=== PATIENT | male | born 1980 | race Caucasian/White ===

== ENCOUNTER 2022-10-01 17:50 | Inpatient (IN) | payer BC ==
[~2022-10-01] VITALS: Ht 177.8 cm; Wt 103.7 kg
[2022-10-01 20:21] LABS: Base Excess Venous -11.5 mmol/L; Bicarbonate Venous 16.6 mmol/L (24.0-30.0); PCO2 Venous 29.3 mmHg (38-42); pH Blood Venous 7.31 (7.34-7.37)
[2022-10-01 21:23] LABS: BASOPHILS ABSOLUTE AUTO 0.04 K/mm3 (0.00-0.23); BASOPHILS PERCENT AUTO 1 % (0-2); EOSINOPHILS ABSOLUTE AUTO 0.07 K/mm3 (0.00-0.68); EOSINOPHILS PERCENT AUTO 1 % (0-6); Hematocrit 35.6 % (37.0-53.0); Hemoglobin 12.6 g/dL (13.5-17.5); IMMATURE GRAN ABSOLUTE AUTO 0.04 K/mm3 (0.00-0.10); IMMATURE GRAN PERCENT AUTO 1 % (0-1); LYMPHOCYTES ABSOLUTE AUTO 1.69 K/mm3 (0.84-5.20); LYMPHOCYTES PERCENT AUTO 26 % (21-46); MONOCYTES PERCENT AUTO 6 % (4-13); Mean Corpuscular HGB 32.3 pg (26.0-34.0); Mean Corpuscular HGB Conc 35.4 g/dL (31.5-36.5); Mean Corpuscular Volume 91 fL (80-100); Mean Platelet Volume 11.6 fL (9.1-12.4); NEUTROPHILS ABSOLUTE AUTO 4.36 K/mm3 (1.96-9.15); NEUTROPHILS PERCENT AUTO 66 % (41-73); NRBC ABSOLUTE 0.02 K/mm3 (0.00-0.02); NRBC Auto 0.3 /100 WBC (0.0-0.2); Platelet Count 264 K/mm3 (150-400); RDW Coefficient Variation 12.6 % (11.7-14.2); RDW Standard Deviation 40.3 fL (35.1-46.3)
[2022-10-01 21:30] LABS: Albumin, Blood 3.5 g/dL (3.4-5.0); Albumin/Globulin Ratio 0.9 (0.8-1.8); Bilirubin, Total 0.9 mg/dL (0.1-1.0); Bun/Creatinine Ratio 27.9 (12.0-20.0); Calcium, Blood 8.4 mg/dL (8.5-10.1); Creatinine, Blood 0.47 mg/dL (0.60-1.20); Globulin, Blood 4.1 g/dL (2.2-4.0); Potassium, Blood 4.4 mmol/L (3.5-5.5); Total Protein, Blood 7.6 g/dL (6.4-8.2)
[2022-10-01 22:22] LABS: Source, Urine Clean Catch
[2022-10-01 22:30] LABS: Bilirubin, Urine Neg (Neg); Blood, Urine Neg (Neg); Glucose Qualitative, Urine 4+ (Neg); Ketones, Urine 4+ (Neg); Leukocyte Esterase, Urine Neg (Neg); Nitrite, Urine Neg (Neg); Protein, Urine Neg (Neg); Specific Gravity, Urine 1.025 (1.003-1.022); Urobilinogen, Urine NORM (Normal)
[2022-10-01 22:37] LABS: Appearance, Urine Clear (Clear); Color, Urine Yellow (P-Yellow)
[2022-10-01] MEDS ORDERED: ZESTRIL40 M1 PO (22:49)
[2022-10-01] MEDS ORDERED: LOSA50 PO (22:53)
[2022-10-01] MEDS ORDERED: HYDROCHLOROT 12.5MG (22:53)
[2022-10-01] MEDS ORDERED: HYDROXYZ HCL 25MG TA (22:54)
[2022-10-01] MEDS ORDERED: HYDHCL25 PO (22:55)
--- NOTE | 2022-10-01 23:00 | NUR ---
PT CHART REVIEWED FOR ADMISSION
[2022-10-01 23:29] VITALS: BP 150/84
[2022-10-02 05:14] LABS: BASOPHILS ABSOLUTE AUTO 0.04 K/mm3 (0.00-0.23); BASOPHILS PERCENT AUTO 1 % (0-2); EOSINOPHILS PERCENT AUTO 2 % (0-6); Hematocrit 35.5 % (37.0-53.0); Hemoglobin 13.3 g/dL (13.5-17.5); IMMATURE GRAN ABSOLUTE AUTO 0.05 K/mm3 (0.00-0.10); IMMATURE GRAN PERCENT AUTO 1 % (0-1); LYMPHOCYTES ABSOLUTE AUTO 1.84 K/mm3 (0.84-5.20); LYMPHOCYTES PERCENT AUTO 31 % (21-46); MONOCYTES ABSOLUTE AUTO 0.38 K/mm3 (0.16-1.47); MONOCYTES PERCENT AUTO 7 % (4-13); Mean Corpuscular HGB 34.1 pg (26.0-34.0); Mean Corpuscular HGB Conc 37.5 g/dL (31.5-36.5); Mean Corpuscular Volume 91 fL (80-100); Mean Platelet Volume 9.7 fL (9.1-12.4); NEUTROPHILS ABSOLUTE AUTO 3.48 K/mm3 (1.96-9.15); NEUTROPHILS PERCENT AUTO 59 % (41-73); Platelet Count 172 K/mm3 (150-400); RDW Standard Deviation 39.7 fL (35.1-46.3); White Blood Cell Count 5.89 K/mm3 (4.00-11.30)
[2022-10-02 05:17] VITALS: BP 130/79
--- NOTE | 2022-10-02 06:04 | NUR ---
Shift Summary Pt was admitted from ED with Dx of high blood sugar. He had gone to urgent care for sycopal episodes where they discovered blood glucose over 700. He has no prior diagnosis of diabetes. When he arrived to this unit his blood sugar was 210 and he stated no remaining dizzyness or signs of syncope. Pt is AOx4, independent in the room. He is a heavy daily drinker with PRN CIWA ordered, no signs of ETOH withdrawal this shift. He had a low sodium of 127 on admit. Pt is rcving NS @ 125 which will be replaced with LR when it's done. He also rcvd IV thiamine and folic acid. VSS, slept well t/o the night.
[2022-10-02 06:12] LABS: Albumin, Blood 3.7 g/dL (3.4-5.0); Albumin/Globulin Ratio 1.2 (0.8-1.8); Bilirubin, Total 0.5 mg/dL (0.1-1.0); Bun/Creatinine Ratio 15.1 (12.0-20.0); Calcium, Blood 8.2 mg/dL (8.5-10.1); Creatinine, Blood 0.73 mg/dL (0.60-1.20); Potassium, Blood 4.1 mmol/L (3.5-5.5); Thyroid Stimulating Hormone 2.72 uIU/mL (0.360-4.800); Total Protein, Blood 6.7 g/dL (6.4-8.2)
--- NOTE | 2022-10-02 08:00 | NUR ---
Pt laying in bed watching tv, visitor in room, a/ox4, pleasant and coopertive with care, follows commands well, denies pain, lungs clear on r/a, resp even and unlabored, no cough noted, hrr, no edema noted, iv to lac site is clear and patent, btx4, abd round soft nontender, voids without diff, skin c/w/d, maew, sancho, call light in reach.
[2022-10-02 08:18] VITALS: BP 128/83
[2022-10-02 12:39] LABS: CHOL/HDL RATIO 6.5; Cholesterol 156 mg/dL (50-200); HDL Cholesterol 24 mg/dL (>39); LDL/HDL RATIO Unable to Calculate; Low Density Lipoprotein Chol Unable to Calculate mg/dL (0-110); Triglycerides 568 mg/dL (30-160); Very Low Density Lipoprot Chol Unable to Calculate mg/dL (6-32)
[2022-10-02 16:14] VITALS: BP 122/71
--- NOTE | 2022-10-02 18:12 | NUR ---
fluids were stopped today, he was started on metformin, doing ok, did some more education on diabetes, no further changes this shift. call light in reach.
[2022-10-02 21:32] VITALS: BP 137/86
[2022-10-03 05:06] VITALS: BP 129/75
[2022-10-03 06:53] LABS: Bun/Creatinine Ratio 15.3 (12.0-20.0); Calcium, Blood 8.7 mg/dL (8.5-10.1); Creatinine, Blood 0.72 mg/dL (0.60-1.20); Potassium, Blood 3.9 mmol/L (3.5-5.5)
--- NOTE | 2022-10-03 06:53 | NUR ---
NO CHANGES THIS SHIFT, CIWAS REMAIN AT 0. NO CHANGE IN INSULIN REGIMEN PER MD PATIENTS BS WAS 361 AT START OF SHIFT. WILL CONTINUE TO MONITOR.
[2022-10-03 06:57] LABS: BASOPHILS ABSOLUTE AUTO 0.05 K/mm3 (0.00-0.23); BASOPHILS PERCENT AUTO 1 % (0-2); EOSINOPHILS ABSOLUTE AUTO 0.11 K/mm3 (0.00-0.68); EOSINOPHILS PERCENT AUTO 2 % (0-6); Hematocrit 39.6 % (37.0-53.0); IMMATURE GRAN ABSOLUTE AUTO 0.06 K/mm3 (0.00-0.10); IMMATURE GRAN PERCENT AUTO 1 % (0-1); LYMPHOCYTES ABSOLUTE AUTO 1.59 K/mm3 (0.84-5.20); LYMPHOCYTES PERCENT AUTO 27 % (21-46); MONOCYTES ABSOLUTE AUTO 0.48 K/mm3 (0.16-1.47); MONOCYTES PERCENT AUTO 8 % (4-13); Mean Corpuscular Volume 90 fL (80-100); Mean Platelet Volume 10.7 fL (9.1-12.4); NEUTROPHILS ABSOLUTE AUTO 3.52 K/mm3 (1.96-9.15); NEUTROPHILS PERCENT AUTO 61 % (41-73); Platelet Count 217 K/mm3 (150-400); RDW Coefficient Variation 12.2 % (11.7-14.2); RDW Standard Deviation 39.7 fL (35.1-46.3); Red Blood Cell Count 4.42 M/mm3 (4.30-5.90); White Blood Cell Count 5.81 K/mm3 (4.00-11.30)
[2022-10-03 07:04] LABS: Mean Corpuscular HGB 31.3 pg (26.0-34.0); Mean Corpuscular HGB Conc 34.4 g/dL (31.5-36.5)
[2022-10-03 07:29] VITALS: BP 130/75
--- NOTE | 2022-10-03 09:00 | NUR ---
Pt laying in bed awake, visitor in room, a/ox4, cooperative with care, follows commands well, denies pain, only complaint was there was a lot of activity early am. glucose continues to read in 300's, no further changes, call light in reach.
[2022-10-03 14:40] LABS: Bun/Creatinine Ratio 14.6 (12.0-20.0); Calcium, Blood 9.8 mg/dL (8.5-10.1); Creatinine, Blood 1.03 mg/dL (0.60-1.20); Potassium, Blood 4.4 mmol/L (3.5-5.5)
[2022-10-03 16:35] VITALS: BP 125/93
--- NOTE | 2022-10-03 18:28 | NUR ---
pt recieved two extra doses of insulin today due to high levels, did more education, glucose in the 200 last reading, notified , will resume ac and hs schedule, pt has been out for several walks, no further changes this shift. call light in reach.
[2022-10-03 19:30] VITALS: BP 127/82
[2022-10-04 00:12] LABS: HEMOGLOBIN A1C 11.7 % (4.8-5.6)
[2022-10-04 02:28] VITALS: BP 103/61
--- NOTE | 2022-10-04 06:26 | NUR ---
PATIENT REMAINS ALERT AND ORIENTED X4, COOPERATIVE WITH CARE. SOME HYPOTENTION THIS MORNING. SPOT CHECK BLOOD SUGAR PER PATIENT REQUEST LAST NIGHT CAME IN AT 355, MD MADE AWARE AND 5U SHORT ACTING ADMINISTERED. EDUCATED PATIENT AND FAMILY, THEY WERE VERY RECEPTIVE AND ASKED QUESTIONS. NO OTHER ISSUES TO REPORT.
[2022-10-04 07:25] VITALS: BP 106/68
--- NOTE | 2022-10-04 09:17 | NUR ---
PATIENT REPORTS HAND TREMORS ARE NORMAL AND LESS NOW THAN NORMAL. PATIENT REPORTS DRINKING 5 BEERS AND A COUPLE SHOT A DAY AND VAPING. PATIENT ASKED IF HE COULD GO OUTSIDE FOR FRESH AIR. RN DISCOURAGED PATIENT FROM LEAVING THE HOSPITAL AND INFORMED HIM THAT THIS IS A NON-SMOKING CAMPUS. CLINICAL COORDINATOR INFORMED OF PATIENT REQUEST TO GO OUTSIDE, SHE SAID WE CAN STOP A PATIENT FROM GOING OUTSIDE BUT TO ENCOURGE HIM NOT TO, WHICH IS WHAT I DID. WILL CONTINUE TO MONITOR
[2022-10-04 16:05] VITALS: BP 110/77
--- NOTE | 2022-10-04 17:53 | NUR ---
PATIENT IS ALERT AND ORIENTED AND COOPERATIVE WITH CARE. DR. LOCKHART MADE SOME CHANGES TO THE PATIENT'S INSULIN REGIMEN TODAY. HIS BG BEFORE DINNER WAS 272. THE PATIENT AND HIS SPOKE WITH THE SURVEYING CREW STAKE RUNNER TODAY. NO NEW COMPLAINTS TODAY. WILL CONTINUE TO MONITOR
[2022-10-04 19:22] VITALS: BP 130/83
[2022-10-05 04:40] VITALS: BP 106/64
--- NOTE | 2022-10-05 05:22 | NUR ---
PATIENT REMAINS ALERT AND ORIENTED X4, COOPERATIVE WITH CARE. SOME HYPOTENTION THIS MORNING, BUT OTHERWISE VSS. HS BLOOD SUGAR 264, NO REQUESTS OVERNIGHT TO SPOT CHECK. PATIENT IS ABLE TO LOAD AND ADMINISTER INSULIN WELL. EDUCATION RE DIET, DRINKING AND VAPE CESSATION. NO OTHER ISSUES TO REPORT.
[2022-10-05 05:36] LABS: Albumin, Blood 3.2 g/dL (3.4-5.0); Anion Gap 14 mmol/L (6-16); Blood Urea Nitrogen 22 mg/dL (8-24); CO2, Blood 22 mmol/L (21-32); Calcium, Blood 8.8 mg/dL (8.5-10.1); Chloride, Blood 94 mmol/L (98-108); Creatinine, Blood 1.05 mg/dL (0.60-1.20); Glomerular Filtration Rate 91 (60-); Glucose, Blood 380 mg/dL (70-99); Phosphorus, Blood 5.2 mg/dL (2.5-4.9); Potassium, Blood 3.8 mmol/L (3.5-5.5); Sodium, Blood 130 mmol/L (136-145)
[2022-10-05 07:32] VITALS: BP 102/62
[2022-10-05] MEDS ORDERED: INSULANPEN SC (13:03)
[2022-10-05] MEDS ORDERED: HUMALOG KW100 UNIT/1 SC ×2 (13:05→13:07)
[2022-10-05] MEDS ORDERED: METF500 PO (13:07)
--- NOTE | 2022-10-05 14:37 | NUR ---
PATIENT DISCHARGED TODAY. DISCHARGE PAPERWORK WAS DISCUSSED WITH THE PATIENT. MEDS FAXED TO [facility]. THE PATIENT WALKED HIMSELF OUTSIDE TO MEET HIS FOR PICKUP.
== END 2022-10-05 13:45 | disposition home or self-care (01) | DRG 639 ==
LOC: ER 17:50 → MEDS 17:51
PROVIDERS: Emergency Medicine; Family Medicine; Internal Medicine; ADMIT Student in an Organized Health Care Education/Training Program
PROC: HZ2ZZZZ Detoxification Services for Substance Abuse Treatment (ICD-10-PCS; principal; 2022-10-01)
DX: E11.10 Type 2 diabetes mellitus with ketoacidosis without coma (principal); E11.65 Type 2 diabetes mellitus with hyperglycemia; I10 Essential (primary) hypertension; F10.20 Alcohol dependence, uncomplicated; F17.290 Nicotine dependence, other tobacco product, uncomplicated; Z88.0 Allergy status to penicillin; Z79.899 Other long term (current) drug therapy; Z71.6 Tobacco abuse counseling
CPT/HCPCS: 36415; 80048; 80053; 80061; 80069; 81003; 82043; 82570; 82803; 82947; 83036; 83735; 84443; 85025; 96360; 96361; 96365; 96367; 96372; 99285-25; A9270; G0378; J1650; J1815; J3411; J7030; J7120

== ENCOUNTER → 2022-10-01 | Outpatient (CLI) | payer BC ==
[~2022-10-01] MED LIST: HUMALOG KW100 UNIT/1 SC; HYDHCL25 PO; HYDROCHLOROT 12.5MG; HYDROXYZ HCL 25MG TA; INSULANPEN SC; LOSA50 PO; METF500 PO; ZESTRIL40 M1 PO
[2022-10-01 16:18] LABS: Albumin, Blood 3.9 g/dL (3.4-5.0); Albumin/Globulin Ratio 0.8 (0.8-1.8); Bilirubin, Total 1.4 mg/dL (0.1-1.0); Bun/Creatinine Ratio 31.5 (12.0-20.0); Calcium, Blood 9.9 mg/dL (8.5-10.1); Creatinine, Blood 0.54 mg/dL (0.60-1.20); Globulin, Blood 4.6 g/dL (2.2-4.0); Potassium, Blood 5.1 mmol/L (3.5-5.5); Total Protein, Blood 8.5 g/dL (6.4-8.2)
[2022-10-01 16:27] LABS: BASOPHILS ABSOLUTE AUTO 0.04 K/mm3 (0.00-0.23); BASOPHILS PERCENT AUTO 1 % (0-2); EOSINOPHILS ABSOLUTE AUTO 0.04 K/mm3 (0.00-0.68); EOSINOPHILS PERCENT AUTO 1 % (0-6); Hematocrit 37.1 % (37.0-53.0); Hemoglobin 13.3 g/dL (13.5-17.5); IMMATURE GRAN ABSOLUTE AUTO 0.04 K/mm3 (0.00-0.10); IMMATURE GRAN PERCENT AUTO 1 % (0-1); LYMPHOCYTES ABSOLUTE AUTO 1.42 K/mm3 (0.84-5.20); LYMPHOCYTES PERCENT AUTO 18 % (21-46); MONOCYTES ABSOLUTE AUTO 0.44 K/mm3 (0.16-1.47); MONOCYTES PERCENT AUTO 6 % (4-13); Mean Corpuscular HGB Conc 35.8 g/dL (31.5-36.5); Mean Corpuscular Volume 89 fL (80-100); Mean Platelet Volume 11.7 fL (9.1-12.4); NEUTROPHILS ABSOLUTE AUTO 5.83 K/mm3 (1.96-9.15); NEUTROPHILS PERCENT AUTO 75 % (41-73); NRBC ABSOLUTE 0.03 K/mm3 (0.00-0.02); NRBC Auto 0.4 /100 WBC (0.0-0.2); Platelet Count 307 K/mm3 (150-400); RDW Coefficient Variation 12.2 % (11.7-14.2); RDW Standard Deviation 38.8 fL (35.1-46.3); Red Blood Cell Count 4.16 M/mm3 (4.30-5.90); White Blood Cell Count 7.81 K/mm3 (4.00-11.30)
[2022-10-03 06:08] LABS: HEMOGLOBIN A1C 11.6 % (4.8-5.6)
== END ==
LOC: LAB SHORT 15:01 → LAB 15:01
PROVIDERS: Physician Assistant
DX: R53.83 Other fatigue (principal); R55 Syncope and collapse; R73.9 Hyperglycemia, unspecified
CPT/HCPCS: 80053; 83036; 83735; 84484; 85025

== ENCOUNTER → 2024-08-15 | Outpatient (CLI) | payer BC ==
[2024-08-15 10:15] LABS: BASOPHILS ABSOLUTE AUTO 0.06 K/mm3 (0.00-0.23); BASOPHILS PERCENT AUTO 1 % (0-2); EOSINOPHILS ABSOLUTE AUTO 0.07 K/mm3 (0.00-0.68); EOSINOPHILS PERCENT AUTO 1 % (0-6); Hematocrit 42.8 % (37.0-53.0); Hemoglobin 15.4 g/dL (13.5-17.5); IMMATURE GRAN ABSOLUTE AUTO 0.04 K/mm3 (0.00-0.10); IMMATURE GRAN PERCENT AUTO 1 % (0-1); LYMPHOCYTES ABSOLUTE AUTO 1.31 K/mm3 (0.84-5.20); LYMPHOCYTES PERCENT AUTO 18 % (21-46); MONOCYTES ABSOLUTE AUTO 0.33 K/mm3 (0.16-1.47); MONOCYTES PERCENT AUTO 5 % (4-13); Mean Corpuscular HGB 31.4 pg (26.0-34.0); Mean Corpuscular Volume 87 fL (80-100); Mean Platelet Volume 9.4 fL (9.1-12.4); NEUTROPHILS ABSOLUTE AUTO 5.34 K/mm3 (1.96-9.15); NEUTROPHILS PERCENT AUTO 75 % (41-73); Platelet Count 214 K/mm3 (150-400); RDW Standard Deviation 38.3 fL (35.1-46.3); White Blood Cell Count 7.15 K/mm3 (4.00-11.30)
[2024-08-15 10:25] LABS: Albumin, Blood 4.3 g/dL (3.4-5.0); Albumin/Globulin Ratio 1.2 (0.8-1.8); Bilirubin, Total 0.6 mg/dL (0.1-1.0); Bun/Creatinine Ratio 15.5 (12.0-20.0); Calcium, Blood 9.2 mg/dL (8.5-10.1); Creatinine, Blood 1.03 mg/dL (0.60-1.20); Globulin, Blood 3.5 g/dL (2.2-4.0); Potassium, Blood 4.2 mmol/L (3.5-5.5); Total Protein, Blood 7.8 g/dL (6.4-8.2)
== END ==
LOC: LAB 10:11 → LAB SHORT 10:11
PROVIDERS: Chiropractor
DX: R73.9 Hyperglycemia, unspecified (principal)
CPT/HCPCS: 80053; 83036; 85025

== ENCOUNTER → 2025-01-18 | Outpatient (CLI) | payer BC ==
[2025-01-18 20:40] LABS: Creatinine, Urine Random 88.8 mg/dL (27.00-270.00); Microalbumin, Random Urine 17.7 mg/L (0.000-20.000)
== END | disposition home or self-care (01) ==
LOC: LAB SHORT 16:20 → LAB 16:20
PROVIDERS: Physician Assistant
DX: E11.65 Type 2 diabetes mellitus with hyperglycemia (principal); E11.59 Type 2 diabetes mellitus with other circulatory complications; E11.69 Type 2 diabetes mellitus with other specified complication
CPT/HCPCS: 82043; 82570